=== PATIENT | male | born 1975 | race Caucasian/White ===

== ENCOUNTER 2016-05-16 20:12 | Emergency (ER) | payer BC ==
[2016-05-16 20:41] VITALS: BP 134/88
[2016-05-16] MEDS ORDERED: Azithromycin TAB* 250 MG PO ONE (21:06)
[2016-05-16] MEDS ORDERED: Benzonatate CAP* 100 MG PO ONE (21:07)
--- NOTE | 2016-05-16 21:11 | UC ---
Respiratory Complaint HPI - HPI Summary HPI Summary: pt c/o nasal congestion, cough, night sweats, chills and generalized malaise X 10 days. 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 Pt did get flu vaccine this year. - History of Current Complaint Chief Complaint: UCGeneralIllness Stated Complaint: COUGH Time Seen by Provider: 05/16/16 20:55 Hx Obtained From: Patient Onset/Duration: Gradual Onset, Lasting Days - 10 Timing: Constant Severity Initially: Mild Severity Currently: Mild Character: Cough: Nonproductive Aggravating Factors: Recumbent Position Alleviating Factors: Nothing Associated Signs And Symptoms: Positive: Chills, URI, Nasal Congestion - Risk Factors Pulmonary Embolism Risk Factors: Negative Cardiac Risk Factors: Negative Pseudomonas Risk Factors: Negative Tuberculosis Risk Factors: Negative - Allergies/Home Medications Allergies/Adverse Reactions: Allergies Allergy/AdvReac Type Severity Reaction Status Date / Time Amoxicillin Allergy Hives Verified 05/16/16 20:41 Penicillins Allergy Hives Verified 05/16/16 20:41 Home Medications: Home Medications Alprazolam [Xanax] 0.5 mg PO DAILY PRN 05/16/16 [History Confirmed 05/16/16] buPROPion SR TAB* [Wellbutrin SR TAB*] 175 mg PO BID 05/16/16 [History Confirmed 05/16/16] PMH/Surg Hx/FS Hx/Imm Hx Previously Healthy: Yes - Surgical History Surgical History: None - Family History Known Family History: Positive: Other - positive [facility] for URI - Social History Lives: With Family Alcohol Use: None Substance Use Type: None Smoking Status (MU): Never Smoked Tobacco Review of Systems Constitutional: Fever, Chills, Fatigue Skin: Negative Eyes: Negative ENT: Negative Respiratory: Shortness Of Breath - with coughing "fit", Cough Cardiovascular: Negative Gastrointestinal: Negative Genitourinary: Negative Motor: Negative Neurovascular: Negative Musculoskeletal: Negative Neurological: Negative Psychological: Negative All Other Systems Reviewed And Are Negative: Yes Physical Exam Triage Information Reviewed: Yes Appearance: Ill-Appearing Vital Signs: Initial Vital Signs Temp 98.4 F 05/16/16 20:35 Pulse 107 05/16/16 20:35 Resp 16 05/16/16 20:35 BP 134/88 05/16/16 20:35 Pulse Ox 98 05/16/16 20:35 Vital Signs Reviewed: Yes Eye Exam: Normal ENT: Positive: Nasal congestion, Other: - PND Neck exam: Normal Respiratory: Positive: Decreased breath sounds - bilateral bases Cardiovascular Exam: Normal Musculoskeletal Exam: Normal Neurological Exam: Normal Psychological Exam: Normal Skin Exam: Normal Diagnostic Evaluation - Laboratory O2 Sat by Pulse Oximetry: 98 Respiratory Course/Dx - Differential Dx/Diagnosis Differential Diagnosis/HQI/PQRI: Bronchitis, Influenza, Other - pneumonia Provider Diagnoses: Bronchitis Discharge - Discharge Plan Condition: Stable Disposition: HOME Prescriptions: Azithromycin TAB* [Zithromax TAB (Z-PAZ) 250 mg #6 tabs] 250 mg PO DAILY #4 tab Benzonatate CAP* [Tessalon 100 MG CAP*] 100 mg PO TID #30 cap predniSONE TAB* [Deltasone TAB*] 30 mg PO DAILY #9 tab Patient Education Materials: Acute Bronchitis (ED) Referrals: [facility] [Outside] Additional Instructions: Please follow up with your PCP or return to clinic as needed. You have not provided a name of a PCP so, we have provided a referral to [facility] affiliated PCP providers for you to establish care with.
== END 2016-05-16 21:21 | disposition home or self-care (01) ==
LOC: UCCORT 20:12
DX: J40 Bronchitis, not specified as acute or chronic (principal); Z88.0 Allergy status to penicillin
CPT/HCPCS: 99202; A9270-GY; G0463

== ENCOUNTER 2017-12-06 17:35 | Emergency (ER) | payer BC ==
[2017-12-06 20:12] VITALS: BP 152/100
--- NOTE | 2017-12-06 20:19 | UC ---
UC General HPI - HPI Summary HPI Summary: Patient is complaining of sinus fullness with drainage and feeling achy since last evening area he denies any associated sore throat or fever. He tried taking Mucinex which helped perhaps a little bit. - History of Current Complaint Chief Complaint: UCRespiratory Stated Complaint: SINUSES/CONGESTION Time Seen by Provider: 12/06/17 20:01 Hx Obtained From: Patient Onset/Duration: Gradual Onset Timing: Constant Pain Intensity: 8 Associated Signs & Symptoms: Negative: Fever, Headache - Allergy/Home Medications Allergies/Adverse Reactions: Allergies Allergy/AdvReac Type Severity Reaction Status Date / Time amoxicillin Allergy Hives Verified 12/06/17 20:09 Penicillins Allergy Hives Verified 12/06/17 20:09 Home Medications: Home Medications Lisinopril TAB* [Prinivil TAB 5 MG*] 1 tab QPM 12/06/17 [History Confirmed 12/06] PMH/Surg Hx/FS Hx/Imm Hx Cardiovascular History: Hypertension - Surgical History Surgical History: None - Family History Known Family History: Positive: Hypertension, Other - positive [facility] for URI - Social History Occupation: Employed Full-time Alcohol Use: Rare Substance Use Type: None Smoking Status (MU): Never Smoked Tobacco - Immunization History Most Recent Tetanus Shot: UTD Vaccination Up to Date: Yes Review of Systems Constitutional: Negative Skin: Negative Eyes: Negative ENT: Nasal Discharge, Sinus Congestion, Sinus Pain/Tenderness Respiratory: Negative Cardiovascular: Negative Gastrointestinal: Negative Genitourinary: Negative Motor: Negative Neurovascular: Negative Musculoskeletal: Negative Neurological: Negative Psychological: Negative Is Patient Immunocompromised?: No All Other Systems Reviewed And Are Negative: Yes Physical Exam Triage Information Reviewed: Yes Appearance: Well-Appearing Vital Signs: Initial Vital Signs Temp 98.9 F 12/06/17 20:04 Pulse 89 12/06/17 20:04 Resp 18 12/06/17 20:04 BP 152/100 12/06/17 20:04 Pulse Ox 100 12/06/17 20:04 Vital Signs Reviewed: Yes Eyes: Positive: Conjunctiva Clear ENT: Positive: Pharynx normal, Nasal congestion, Nasal drainage - clear, TMs normal. Negative: Sinus tenderness Neck: Positive: Supple, Nontender, No Lymphadenopathy Respiratory: Positive: Lungs clear, Normal breath sounds Cardiovascular: Positive: RRR, No Murmur Abdomen Description: Positive: Nontender, No Organomegaly, Soft Bowel Sounds: Positive: Present Musculoskeletal: Positive: ROM Intact Neurological: Positive: Alert Psychological: Positive: Age Appropriate Behavior Skin Exam: Normal Course/Dx - Course Course Of Treatment: Patient has had nasal congestion for less than 24 hours. He has no associated fever or purulent drainage. There is no indication for treatment with antibiotics. Given his high blood pressure, he is to avoid oral decongestants but I did suggest he try and Afrin spray for 3 days per the label and then stop. His blood pressure is elevated here; however, he has a history of hypertension and did not yet taken his blood pressure pill today. He's been advised to take his blood pressure medication when he arrives home. He will have his blood pressure rechecked in follow-up with his primary care. - Differential Dx - Multi-Symptom Provider Diagnoses: URI Discharge - Sign-Out/Discharge Documenting (check all that apply): Patient Departure All imaging exams completed and their final reports reviewed: No Studies - Discharge Plan Condition: Stable Disposition: HOME Patient Education Materials: Coronary Artery Disease (DC), Upper Respiratory Infection (ED), Hypertension (ED) Referrals: Marek Gaona MD [Primary Care Provider] - 5 Days Additional Instructions: Take Afrin nasal spray decongestant per label for 3 days then stop. Consider starting Flonase [id number] per label. Take your blood pressure medication when you get home. - Billing Disposition and Condition Condition: STABLE Disposition: Home
== END 2017-12-06 20:25 | disposition home or self-care (01) ==
LOC: UCCORT 17:35
DX: J06.9 Acute upper respiratory infection, unspecified (principal); Z88.0 Allergy status to penicillin; I10 Essential (primary) hypertension
CPT/HCPCS: 99211; G0463

== ENCOUNTER 2018-05-13 15:49 | Emergency (ER) | payer BC, OTHER ==
[2018-05-13 16:39] VITALS: BP 120/69
[2018-05-13] MEDS ORDERED: Ibuprofen TAB* 600 MG PO ONE (17:05)
--- NOTE | 2018-05-13 17:09 | UC ---
Truncal Trauma HPI - HPI Summary HPI Summary: 43-year-old male comes in with a chief complaint of thoracic back pain. This morning at work he slipped and fell on ice and landed on his mid thoracic back. He has pain in that area. Pain is worse with twisting turning bending and taking a deep breath. Does not feel short of breath. Pain does radiate up towards the neck but he denies any neck or head injury specifically. Denies any low back pain. Denies any other injuries. Tried some ibuprofen and did not help very much. - History Of Current Complaint Chief Complaint: UCBackPain Stated Complaint: BACK/SHOULDER INJURY (FALL W/C) Time Seen by Provider: 05/13/18 16:55 Pain Intensity: 6 - Allergies/Home Medications Allergies/Adverse Reactions: Allergies Allergy/AdvReac Type Severity Reaction Status Date / Time amoxicillin Allergy Hives Verified 05/13/18 16:39 Penicillins Allergy Hives Verified 05/13/18 16:39 Home Medications: Home Medications Bupropion XL* [Wellbutrin XL *] 150 mg PO DAILY 05/13/18 [History Confirmed 02/19] Ibuprofen TAB* [Motrin TAB* 600 MG] 600 mg PO Q8H PRN 05/13/18 [History Confirmed 05/13/18] PMH/Surg Hx/FS Hx/Imm Hx Previously Healthy: Yes Cardiovascular History: Hypertension - Surgical History Surgical History: None - Family History Known Family History: Positive: Hypertension, Other - positive [facility] for URI - Social History Alcohol Use: Rare Substance Use Type: None Smoking Status (MU): Never Smoked Tobacco - Immunization History Most Recent Tetanus Shot: UTD Vaccination Up to Date: Yes Review of Systems All Other Systems Reviewed And Are Negative: Yes Constitutional: Positive: Negative Skin: Positive: Negative Eyes: Positive: Negative ENT: Positive: Negative Respiratory: Positive: Other - see hpi Cardiovascular: Positive: Chest Pain Gastrointestinal: Positive: Negative Motor: Positive: Negative Neurovascular: Positive: Negative Musculoskeletal: Positive: Other: - see hpi Neurological: Positive: Negative Psychological: Positive: Negative Is Patient Immunocompromised?: No Physical Exam Triage Information Reviewed: Yes Appearance: Well-Appearing, Well-Nourished, Pain Distress - with rom Vital Signs: Initial Vital Signs Temp 98.4 F 05/13/18 16:33 Pulse 69 05/13/18 16:33 Resp 16 05/13/18 16:33 BP 120/69 05/13/18 16:33 Pulse Ox 96 05/13/18 16:33 Vital Signs Reviewed: Yes Eye Exam: Normal Eyes: Positive: Conjunctiva Clear ENT: Positive: Pharynx normal, TMs normal - no hemotympanum Neck exam: Normal Neck: Positive: Supple, Nontender Respiratory: Positive: Lungs clear, Normal breath sounds, No respiratory distress, Other: - Tender to palpation mid thoracic spine and the medial ribs bilaterally approximately level of T6 through T10. Neck is nontender to palpation with full range of motion. Lumbar spine is nontender to palpation. Cardiovascular: Positive: RRR Abdomen Description: Positive: Nontender, Soft. Negative: CVA Tenderness (R), CVA Tenderness (L) Bowel Sounds: Positive: Present Musculoskeletal: Positive: Other: - Tender to palpation mid thoracic spine and the medial ribs bilaterally approximately level of T6 through T10. Neck is nontender to palpation with full range of motion. Lumbar spine is nontender to palpation. Neurological Exam: Normal Neurological: Positive: Alert, Muscle Tone Normal Psychological Exam: Normal Psychological: Positive: Age Appropriate Behavior Skin Exam: Normal Truncal Trauma Course/Dx - Course Course Of Treatment: Patient Name: NATHAN OCAMPO Medical Record#: [id number]. Ordering Physician: Adelso Mims MD Acct.#: [id number]. : 1975 Age: 43 Sex: M Location: [facility]. Exam Date: 05/13/181701 ADM Status: REG ER. Order Information: THORACIC SPINE 2 VWS. Accession Number: [id number]. CPT: 23548. INDICATION: Trauma, mid thoracic pain. COMPARISON: There are no relevant prior studies available for comparison. TECHNIQUE: AP and lateral films of the dorsal spine were obtained. FINDINGS: There is a mild dorsal scoliosis convex toward the left side. The vertebra are. otherwise in normal alignment. No fracture is seen. Disc spaces appear maintained. IMPRESSION: NO EVIDENCE FOR FRACTURE. Patient Name: NATHAN OCAMPO Medical Record# : [id number]. Ordering Physician: Adelso Mims MD Acct.#: [id number]. : 1975 Age: 43 Sex: M Location: [facility]. Exam Date: 02/19 ADM Status: REG ER. Order Information: RIBS BI W/PA CHEST MIN 4 VWS. Accession Number: [id number]. CPT: 24927. Indication: Fall, mid back pain. 4 views of the right ribs 4 views of left ribs are reviewed. Left ribs demonstrates no fracture. Right ribs demonstrates no fracture. Two-view chest. demonstrates no pneumothorax. IMPRESSION: No fracture of the RIBS is identified. No pneumothorax is noted. I discussed the x-rays with the patient and his I discussed the x-rays with the patient and his . No fracture seen. Patient was given an incentive spirometer to be used every 4 hours while awake by nursing and giving teaching in clinic. Plan is to follow-up with occupational medicine or his primary care doctor. Get reevaluated sooner if worse. - Differential Dx/Diagnosis Provider Diagnosis: Acute thoracic back pain, Rib contusion Discharge - Sign-Out/Discharge Documenting (check all that apply): Patient Departure All imaging exams completed and their final reports reviewed: Yes - Discharge Plan Condition: Stable Disposition: HOME Prescriptions: HYDROcodone/ACETAMIN 5-325 MG* [Hooper 5-325 TAB*] 1 tab PO Q4H PRN #20 tab MDD 6 PRN Reason: Pain Patient Education Materials: Thoracic Back Strain (ED), Rib Contusion (ED) Forms: *Work Release Referrals: Marek Gaona MD [Primary Care Provider] - Chris Verduzco MD [Medical Doctor] - Additional Instructions: FOLLOW UP WITH DR VERDUZCO, OCCUPATIONAL MEDICINE, OR YOUR PRIMARY CARE DOCTOR IF NOT COMPLETELY IMPROVED. USE THE INCENTIVE SPIROMETER EVERY 4 HOURS WHILE AWAKE TO HELP AVOID RESPIRATORY INFECTIONS. GET RECHECKED FOR ANY WORSENING OF YOUR CONDITION; PAIN, SHORTNESS OF BREATH, YOU FEEL ILL OR QUESTIONS OR CONCERNS. - Billing Disposition and Condition Condition: STABLE Disposition: Home
[2018-05-13] MEDS ORDERED: HYDROcodone/ACETAMIN 5-325 MG* 1 TAB PO ONE (17:22)
== END 2018-05-13 18:43 | disposition home or self-care (01) ==
LOC: UCCORT 15:49
DX: M54.6 Pain in thoracic spine (principal); S20.219A Contusion of unspecified front wall of thorax, initial encounter; I10 Essential (primary) hypertension; Z88.0 Allergy status to penicillin; W00.0XXA Fall on same level due to ice and snow, initial encounter; Y92.9 Unspecified place or not applicable
CPT/HCPCS: 71111; 72070; 99212; A9270-GY; G0463

== ENCOUNTER 2018-05-23 16:43 | Emergency (ER) | payer BC, OTHER ==
[2018-05-23 17:02] VITALS: BP 152/98
--- NOTE | 2018-05-23 17:20 | UC ---
Dental HPI - HPI Summary HPI Summary: PT PRESENTS WITH SUDDEN ONSET OF DENTAL PAIN S/P CHEWING ON "BEEF STICK" AND FEELING "A HARD CRUNCHING THINGS" WHILE CHEWING AND SUDDEN ONSET OF PAIN LEFT UPPER POSTERIOR MOLAR. Pt has known wisdom teeth that ike impacted and need to be extracted but is unable to make an appointment until 2 months from now from removal. - History of Current Complaint Chief Complaint: UCDentalProblem Stated Complaint: DENTAL (BROKE TOOTH) PAIN Time Seen by Provider: 05/23/18 16:58 Hx Obtained From: Patient Onset/Duration: Sudden Onset, Still Present Severity: Severe Pain Intensity: 8 Aggravating Factor(s): Heat, Cold, Chewing Related History: Other - pieces of broken tooth - Allergies/Home Medications Allergies/Adverse Reactions: Allergies Allergy/AdvReac Type Severity Reaction Status Date / Time amoxicillin Allergy Hives Verified 05/23/18 17:02 Penicillins Allergy Hives Verified 05/23/18 17:02 PMH/Surg Hx/FS Hx/Imm Hx Previously Healthy: Yes - Surgical History Surgical History: None - Family History Known Family History: Positive: Hypertension, Other - positive [facility] for URI - Social History Occupation: Employed Full-time Lives: With Family Alcohol Use: Rare Substance Use Type: None Smoking Status (MU): Never Smoked Tobacco Have You Smoked in the Last Year: No - Immunization History Most Recent Tetanus Shot: UTD Vaccination Up to Date: Yes Review of Systems All Other Systems Reviewed And Are Negative: Yes Constitutional: Positive: Negative Skin: Positive: Negative Eyes: Positive: Negative ENT: Positive: Dental Pain Respiratory: Positive: Negative Cardiovascular: Positive: Negative Gastrointestinal: Positive: Negative Genitourinary: Positive: Negative Motor: Positive: Negative Neurovascular: Positive: Negative Musculoskeletal: Positive: Negative Neurological: Positive: Negative Psychological: Positive: Negative Is Patient Immunocompromised?: No Physical Exam Triage Information Reviewed: Yes Appearance: Pain Distress Vital Signs: Initial Vital Signs Temp 98.3 F 05/23/18 16:58 Pulse 82 05/23/18 16:58 Resp 18 05/23/18 16:58 BP 152/98 05/23/18 16:58 Pulse Ox 98 05/23/18 16:58 Vital Signs Reviewed: Yes Eye Exam: Normal ENT Exam: Normal Dental: Positive: Dental Fracture @ - left upper last molar Neck exam: Normal Respiratory Exam: Normal Respiratory: Positive: No respiratory distress Musculoskeletal Exam: Normal Neurological Exam: Normal Psychological Exam: Normal Skin Exam: Normal Dental Complaint Course/Dx - Differential Dx/Diagnosis Differential Diagnosis/Dx: Fractured Tooth Provider Diagnosis: Fracture, tooth Discharge - Sign-Out/Discharge Documenting (check all that apply): Patient Departure All imaging exams completed and their final reports reviewed: No Studies - Discharge Plan Condition: Stable Disposition: HOME Prescriptions: Clindamycin HCl 300 mg PO Q8H #30 capsule Ibuprofen TAB* [Motrin TAB* 800 MG] 800 mg PO Q8H PRN #15 tab PRN Reason: Pain Lidocaine 2% VISCOUS* [Xylocaine 2% Viscous*] 15 ml SWISH SPIT Q4H PRN #1 btl PRN Reason: Pain Patient Education Materials: Acute Dental Trauma (ED) Referrals: Mraek Gaona MD [Primary Care Provider] - Additional Instructions: PLEASE FOLLOW UP WITH YOUR DENTAL CARE PROVIDER SOON POSSIBLE. - Billing Disposition and Condition Condition: STABLE Disposition: Home
== END 2018-05-23 17:34 | disposition home or self-care (01) ==
LOC: UCCORT 16:43
DX: S02.5XXA Fracture of tooth (traumatic), initial encounter for closed fracture (principal); Z88.0 Allergy status to penicillin; X58.XXXA Exposure to other specified factors, initial encounter; Y92.9 Unspecified place or not applicable
CPT/HCPCS: 99212; G0463